=== PATIENT | female | born 1945 | race Two or more races ===

== ENCOUNTER 2017-05-21 10:35 | Outpatient (CLI) | payer OTHER | END 2017-05-21 10:52 | disposition home or self-care (01) | LOC: LAB 10:35 | DX: E55.9 Vitamin D deficiency, unspecified (principal); R05 Cough; I10 Essential (primary) hypertension; E78.4 Other hyperlipidemia; Z12.11 Encounter for screening for malignant neoplasm of colon; E66.8 Other obesity ==

== ENCOUNTER 2019-09-14 10:24 | Outpatient (CLI) | payer OTHER | END 2019-09-14 10:33 | disposition home or self-care (01) | LOC: LAB 10:24 → RAD 10:24 → LAB 10:33 | PROVIDERS: ATTEND Internal Medicine | DX: E78.89 Other lipoprotein metabolism disorders (principal); I10 Essential (primary) hypertension; Z01.810 Encounter for preprocedural cardiovascular examination; M54.5 Low back pain; Z12.11 Encounter for screening for malignant neoplasm of colon ==

== ENCOUNTER 2019-10-12 10:16 | Inpatient (IN) | payer OTHER ==
[~2019-10-12] VITALS: Ht 160 cm; Wt 74.8 kg
[2019-10-12] MEDS ORDERED: TENORMIN50 M1 (10:45)
[2019-10-25] MEDS ORDERED: TENORMIN50 M1 PO (06:54)
== END 2019-10-25 12:10 | disposition home or self-care (01) | DRG 177 ==
LOC: ER 10:16 → MEDJ 19:26
PROVIDERS: ADMIT Internal Medicine; ATTEND Internal Medicine
PROC: 8E0ZXY6 Isolation (ICD-10-PCS; principal; 2019-10-12)
PROC: 4A033R1 Measurement of Arterial Saturation, Peripheral, Percutaneous Approach (ICD-10-PCS; 2019-10-12)
PROC: CB2YYZZ Tomographic (Tomo) Nuclear Medicine Imaging of Respiratory System using Other Radionuclide (ICD-10-PCS; 2019-10-12)
PROC: 3E0F7SF Introduction of Other Gas into Respiratory Tract, Via Natural or Artificial Opening (ICD-10-PCS; 2019-10-12)
PROC: 4A12X4Z Monitoring of Cardiac Electrical Activity, External Approach (ICD-10-PCS; 2019-10-19)
DX: U07.1 COVID-19 (principal); J12.89 Other viral pneumonia; I10 Essential (primary) hypertension; E78.5 Hyperlipidemia, unspecified; E78.00 Pure hypercholesterolemia, unspecified; R09.02 Hypoxemia; T37.5X5A Adverse effect of antiviral drugs, initial encounter; R94.5 Abnormal results of liver function studies

== ENCOUNTER 2019-11-24 07:57 | Outpatient (CLI) | payer OTHER ==
[~2019-11-24 07:57] MED LIST: TENORMIN50 M1; TENORMIN50 M1 PO
== END 2019-11-24 08:10 | disposition home or self-care (01) ==
LOC: LAB 07:57
PROVIDERS: ATTEND Internal Medicine
DX: I10 Essential (primary) hypertension (principal); E78.49 Other hyperlipidemia; M54.5 Low back pain; Z03.818 Encounter for observation for suspected exposure to other biological agents ruled out; Z20.828 Contact with and (suspected) exposure to other viral communicable diseases; E55.9 Vitamin D deficiency, unspecified

== ENCOUNTER 2020-04-27 08:29 | Outpatient (CLI) | payer OTHER | END 2020-04-27 09:07 | disposition home or self-care (01) | LOC: LAB 08:29 | PROVIDERS: ATTEND Internal Medicine | DX: E78.89 Other lipoprotein metabolism disorders (principal); I10 Essential (primary) hypertension; M54.5 Low back pain; D69.49 Other primary thrombocytopenia; I70.0 Atherosclerosis of aorta; I73.89 Other specified peripheral vascular diseases; J06.9 Acute upper respiratory infection, unspecified; Z20.828 Contact with and (suspected) exposure to other viral communicable diseases; Z12.11 Encounter for screening for malignant neoplasm of colon ==

== ENCOUNTER 2020-12-10 11:57 | Outpatient (CLI) | payer OTHER | END 2020-12-10 12:09 | disposition home or self-care (01) | LOC: MAMO-SONO 11:57 | PROVIDERS: ATTEND Internal Medicine | DX: R92.1 Mammographic calcification found on diagnostic imaging of breast (principal); Z12.31 Encounter for screening mammogram for malignant neoplasm of breast; E78.89 Other lipoprotein metabolism disorders; I10 Essential (primary) hypertension; M54.59 Other low back pain; D69.49 Other primary thrombocytopenia; N60.11 Diffuse cystic mastopathy of right breast; N60.12 Diffuse cystic mastopathy of left breast; Z13.820 Encounter for screening for osteoporosis; I70.0 Atherosclerosis of aorta ==

== ENCOUNTER 2021-03-27 12:32 | Outpatient (CLI) | payer OTHER | END 2021-03-27 12:39 | disposition home or self-care (01) | LOC: RAD 12:32 | PROVIDERS: ATTEND Internal Medicine | DX: M54.59 Other low back pain (principal); Z13.820 Encounter for screening for osteoporosis ==

== ENCOUNTER 2021-08-13 07:01 | Outpatient (CLI) | payer OTHER | END 2021-08-13 07:11 | disposition home or self-care (01) | LOC: LAB 07:01 | PROVIDERS: ATTEND Internal Medicine | DX: E78.9 Disorder of lipoprotein metabolism, unspecified (principal); I10 Essential (primary) hypertension; M54.50 Low back pain, unspecified; D69.49 Other primary thrombocytopenia; I79.0 Aneurysm of aorta in diseases classified elsewhere; Z13.820 Encounter for screening for osteoporosis; Z12.31 Encounter for screening mammogram for malignant neoplasm of breast ==

== ENCOUNTER 2021-11-07 09:41 | Outpatient (CLI) | payer OTHER | END 2021-11-07 09:44 | disposition home or self-care (01) | LOC: MAMO-SONO 09:41 | PROVIDERS: ATTEND Internal Medicine | DX: N60.11 Diffuse cystic mastopathy of right breast (principal); N60.12 Diffuse cystic mastopathy of left breast; Z12.31 Encounter for screening mammogram for malignant neoplasm of breast; Z13.820 Encounter for screening for osteoporosis; E78.9 Disorder of lipoprotein metabolism, unspecified; I10 Essential (primary) hypertension; M54.50 Low back pain, unspecified; D69.49 Other primary thrombocytopenia; I70.0 Atherosclerosis of aorta ==

== ENCOUNTER → 2022-02-20 08:34 | Outpatient (CLI) | payer OTHER | END | disposition home or self-care (01) | LOC: LAB 08:34 | PROVIDERS: ATTEND Internal Medicine | DX: E78.9 Disorder of lipoprotein metabolism, unspecified (principal); I10 Essential (primary) hypertension; M54.50 Low back pain, unspecified; D69.49 Other primary thrombocytopenia; I70.0 Atherosclerosis of aorta; Z13.820 Encounter for screening for osteoporosis; Z12.31 Encounter for screening mammogram for malignant neoplasm of breast ==

== ENCOUNTER 2023-03-10 08:05 | Outpatient (CLI) | payer OTHER ==
[2023-03-10 08:44] LABS: HEMATOCRIT 37.4 % (36.0-45.00); HEMOGLOBIN 12.3 g/dL (12.0-15.00); MEAN CELL VOLUME 76.9 fL (80.00-100.00); MEAN CORPUSCULAR HEMOGLOBIN 25.3 pg (27.00-32.0); MEAN CORPUSCULAR HGB CONC 32.9 g/dl (32.0-36.0); PLATELET COUNT 151 K/uL (150-450); RED BLOOD COUNT 4.87 M/uL (4.00-6.00); RED CELL DISTRIBUTION WIDTH 15.9 % (11.5-14.5)
[2023-03-10 09:23] LABS: ALBUMIN 3.5 gm/dL (3.4-5.0); BILIRUBIN TOTAL 0.37 mg/dL (0.3-1.2); CALCIUM 9.1 mg/dL (8.5-10.1); CHOL HDL RATIO 3.7 (0-5.0); CREATININE SERUM 0.99 mg/dL (0.55-1.02); GFR 54.39; GLOBULINA 4.2 G/DL (2.4-3.5); PHOSPHOROUS 3.8 mg/dL (2.5-4.9); POTASSIUM 4.25 mEq/L (3.5-5.1); T4 TOTAL 6.53 UG/DL (4.8-13.9); TOTAL PROTEIN 7.7 gm/dL (6.4-8.2); TSH 2.87 uIU/mL (0.358-3.74)
[2023-03-10 10:33] LABS: URINE APPEARANCE Clear; URINE BILIRRUBIN Negative (NEGATIVE); URINE BLOOD Small; URINE COLOR Yellow; URINE GLUCOSE Negative (NEGATIVE); URINE LEUKOCYTE Small; URINE NITRATE Negative; URINE PROTEIN Negative (NEGATIVE); URINE UROBILINOGEN 0.2 E.U./dl
[2023-03-10 10:37] LABS: URINE BACTERIA 3138.6 uL (0.0-1933); URINE EPITHELIAL CELLS 28.1 uL (0.0-38.8); URINE RBC 33.7 uL (0.0-20.8)
== END 2023-03-10 08:20 | disposition home or self-care (01) ==
LOC: LAB 08:05
PROVIDERS: ATTEND Internal Medicine
DX: E78.9 Disorder of lipoprotein metabolism, unspecified (principal); I10 Essential (primary) hypertension; M54.59 Other low back pain; D69.49 Other primary thrombocytopenia; I70.0 Atherosclerosis of aorta; Z13.820 Encounter for screening for osteoporosis; Z12.31 Encounter for screening mammogram for malignant neoplasm of breast

== ENCOUNTER 2023-03-12 09:53 | Outpatient (CLI) | payer OTHER | END 2023-03-12 10:05 | disposition home or self-care (01) | LOC: MAMO-SONO 09:53 | PROVIDERS: ATTEND Internal Medicine | DX: N63.0 Unspecified lump in unspecified breast (principal); N60.11 Diffuse cystic mastopathy of right breast; N60.12 Diffuse cystic mastopathy of left breast; Z12.39 Encounter for other screening for malignant neoplasm of breast; Z12.31 Encounter for screening mammogram for malignant neoplasm of breast; Z13.820 Encounter for screening for osteoporosis; I70.0 Atherosclerosis of aorta; D69.49 Other primary thrombocytopenia; I10 Essential (primary) hypertension; E78.9 Disorder of lipoprotein metabolism, unspecified ==

== ENCOUNTER 2023-09-24 08:52 | Outpatient (CLI) | payer OTHER | END 2023-09-24 08:56 | disposition home or self-care (01) | LOC: RAD 08:52 | PROVIDERS: ATTEND Ophthalmology | DX: Z01.811 Encounter for preprocedural respiratory examination (principal) ==

== ENCOUNTER 2023-10-01 10:04 | Outpatient (CLI) | payer OTHER | END 2023-10-01 10:10 | disposition home or self-care (01) | LOC: LAB 10:04 | PROVIDERS: ATTEND Ophthalmology | DX: I10 Essential (primary) hypertension (principal) ==